=== PATIENT | female | born 1940 | race Caucasian/White ===

== ENCOUNTER 2022-04-05 10:59 | Outpatient (CLI) | payer OTHER | END 2022-04-05 11:01 | disposition home or self-care (01) | LOC: SONOGRAMA 10:59 | PROVIDERS: ATTEND Pathology Anatomic Pathology | DX: D11.0 Benign neoplasm of parotid gland (principal) ==

== ENCOUNTER 2022-08-05 10:11 | Outpatient (CLI) | payer OTHER | END 2022-08-05 10:28 | disposition home or self-care (01) | LOC: MRI 10:11 | PROVIDERS: ATTEND Neuromusculoskeletal Medicine & OMM | DX: F03.90 Unspecified dementia, unspecified severity, without behavioral disturbance, psychotic disturbance, mood disturbance, and anxiety (principal); F09 Unspecified mental disorder due to known physiological condition | CPT/HCPCS: 70544; 70551 ==

== ENCOUNTER 2022-08-30 08:11 | Outpatient (CLI) | payer OTHER | END 2022-08-30 08:14 | disposition home or self-care (01) | LOC: NUCLEAR 08:11 | PROVIDERS: ATTEND Psychiatry & Neurology Clinical Neurophysiology | DX: G30.1 Alzheimer's disease with late onset (principal) | CPT/HCPCS: 78814; A9552 ==

== ENCOUNTER 2022-11-25 08:45 | Outpatient (CLI) | payer OTHER | END 2022-11-25 08:55 | disposition home or self-care (01) | LOC: MAMO-SONO 08:45 | PROVIDERS: ATTEND Obstetrics & Gynecology | DX: Z12.31 Encounter for screening mammogram for malignant neoplasm of breast (principal); N60.11 Diffuse cystic mastopathy of right breast; N60.12 Diffuse cystic mastopathy of left breast ==

== ENCOUNTER 2022-12-07 12:45 | Outpatient (CLI) | payer OTHER | END 2022-12-07 12:47 | disposition home or self-care (01) | LOC: NUCLEAR 12:45 | DX: M81.0 Age-related osteoporosis without current pathological fracture (principal) ==